=== PATIENT | female | born 1975 | race Caucasian/White ===

== ENCOUNTER 2022-04-29 22:06 | Emergency (ER) | payer OTHER ==
[~2022-04-29] VITALS: Ht 167.6 cm; Wt 108.9 kg
[~2022-04-29 22:06] MED LIST: CEPH500 PO; MULVITMINE PO; OLAN7.5 PO; PHENA200 PO; RXHYDACE PO; RXSULTRIDS PO; SULTRIDS PO
[2022-04-30] MEDS ORDERED: Fleet Enema132 ML PR (00:13)
[2022-04-30 01:00] LABS: Albumin, Blood 4.3 g/dL (3.4-5.0); Albumin/Globulin Ratio 1.1 (0.8-1.8); Bilirubin, Total 0.4 mg/dL (0.1-1.0); Bun/Creatinine Ratio 12.2 (12.0-20.0); Calcium, Blood 12.6 mg/dL (8.5-10.1); Creatinine, Blood 0.66 mg/dL (0.40-1.00); Potassium, Blood 3.8 mmol/L (3.5-5.5); Total Protein, Blood 8.3 g/dL (6.4-8.2)
== END 2022-04-30 01:30 | disposition home or self-care (01) ==
LOC: ER 22:06
PROVIDERS: Student in an Organized Health Care Education/Training Program
DX: K59.00 Constipation, unspecified (principal); E83.52 Hypercalcemia
CPT/HCPCS: 36415; 80053; 99283; A9270

== ENCOUNTER 2023-12-13 05:31 | Observation (INO) | payer OTHER ==
[~2023-12-13] VITALS: Ht 167.6 cm; Wt 95.2 kg
[~2023-12-13 05:31] MED LIST changes: +Fleet Enema132 ML PR
[2023-12-13] MEDS ORDERED: ZOLP5 PO (05:56)
[2023-12-13] MEDS ORDERED: OLANZapine 10 MG Tab PO PRN (08:20)
[2023-12-13 10:23] LABS: Source, Urine Clean Catch
[2023-12-13 10:33] LABS: Appearance, Urine Hazy (Clear); Bilirubin, Urine Neg (Neg); Blood, Urine 4+ (Neg); Color, Urine Yellow (P-Yellow); Glucose Qualitative, Urine Neg (Neg); Ketones, Urine Neg (Neg); Leukocyte Esterase, Urine 3+ (Neg); Nitrite, Urine Neg (Neg); Protein, Urine 2+ (Neg); Specific Gravity, Urine 1.015 (1.003-1.022); Urobilinogen, Urine NORM (Normal); pH, Urine 6.5 (5.0-8.0)
[2023-12-13 10:50] LABS: Bacteria Mod /hpf; Mucus Light (0-Heavy); Squamous Epithelial Cells Mod /hpf (Few); Uric Acid Crystals Few /hpf; White Blood Cells, Urine 25-50 /hpf (0-5)
[2023-12-13 10:58] LABS: U Amphetamine Screen Not Detected; U Barbituate Screen Not Detected; U Benzodiazapine Screen Not Detected; U Buprenorphine Screen Not Detected; U Cannabinoids Screen Not Detected; U Cocaine Screen Not Detected; U Methadone Screen Not Detected; U Methamphetamine Screen Not Detected; U Opiates Screen Not Detected; U Oxycodone Screen Not Detected; U Phencyclidine Screen Not Detected
[2023-12-13 14:37] LABS: BASOPHILS ABSOLUTE AUTO 0.05 K/mm3 (0.00-0.23); BASOPHILS PERCENT AUTO 1 % (0-2); EOSINOPHILS ABSOLUTE AUTO 0.19 K/mm3 (0.00-0.68); EOSINOPHILS PERCENT AUTO 2 % (0-6); Hematocrit 38.7 % (33.0-51.0); Hemoglobin 13.1 g/dL (11.5-16.0); IMMATURE GRAN ABSOLUTE AUTO 0.02 K/mm3 (0.00-0.10); IMMATURE GRAN PERCENT AUTO 0 % (0-1); LYMPHOCYTES ABSOLUTE AUTO 2.51 K/mm3 (0.84-5.20); LYMPHOCYTES PERCENT AUTO 31 % (21-46); MONOCYTES ABSOLUTE AUTO 0.88 K/mm3 (0.16-1.47); MONOCYTES PERCENT AUTO 11 % (4-13); Mean Corpuscular HGB 26.5 pg (26.0-34.0); Mean Corpuscular HGB Conc 33.9 g/dL (31.5-36.5); Mean Corpuscular Volume 78 fL (80-100); Mean Platelet Volume 9.4 fL (9.1-12.4); NEUTROPHILS ABSOLUTE AUTO 4.53 K/mm3 (1.96-9.15); NEUTROPHILS PERCENT AUTO 55 % (41-73); Platelet Count 359 K/mm3 (150-400); RDW Coefficient Variation 14.6 % (11.7-14.2); RDW Standard Deviation 41.5 fL (35.1-46.3); Red Blood Cell Count 4.95 M/mm3 (3.80-5.20); White Blood Cell Count 8.18 K/mm3 (4.00-11.30)
[2023-12-13 15:24] LABS: Alanine Aminotransfer (ALT/SGP 54 U/L (12-78); Alk Phos 83 U/L (50-136); Anion Gap 8 mmol/L (3-11); Aspartate Aminotrans (AST/SGOT 34 U/L (12-37); Bilirubin, Total 0.3 mg/dL (0.1-1.0); Blood Urea Nitrogen 7 mg/dL (8-24); CO2, Blood 25 mmol/L (21-32); Calcium, Blood 13.6 mg/dL (8.5-10.1); Chloride, Blood 109 mmol/L (98-108); Creatinine, Blood 0.78 mg/dL (0.40-1.00); Ethanol (Alcohol), Blood, Med <3 mg/dL; Globulin, Blood 3.9 g/dL (2.2-4.0); Glomerular Filtration Rate 95 (60-); Glucose, Blood 139 mg/dL (70-99); Potassium, Blood 3.3 mmol/L (3.5-5.5); Salicylate 2.4 mg/dL (2.8-20.0); Sodium, Blood 139 mmol/L (136-145); Total Protein, Blood 7.9 g/dL (6.4-8.2)
[2023-12-13 15:25] LABS: Acetaminophen, Random <2.0 ug/mL (10.0-30.0)
[2023-12-13 20:11] VITALS: BP 158/107
[2023-12-13] MEDS ORDERED: Zolpidem Tartrate 5 MG Tab PO SCH (21:00)
== END 2023-12-13 20:59 | disposition home or self-care (01) ==
LOC: ER 05:31 → EOR 05:32
PROVIDERS: ADMIT Emergency Medicine
DX: F25.1 Schizoaffective disorder, depressive type (principal); R45.851 Suicidal ideations; Z79.899 Other long term (current) drug therapy
CPT/HCPCS: 80053; 80320; 81001; 81025; 85025; 87086; 99285; A9270; G0378; G0480

== ENCOUNTER 2024-01-06 18:42 | Inpatient (IN) | payer OTHER ==
[~2024-01-06] VITALS: Ht 167.6 cm; Wt 91.5 kg
[~2024-01-06 18:42] MED LIST changes: +ZOLP5 PO
[2024-01-06] MEDS ORDERED: Lactated Ringer's 1,000 ML IV ONE (19:15)
[2024-01-06 20:12] LABS: BASOPHILS ABSOLUTE AUTO 0.06 K/mm3 (0.00-0.23); BASOPHILS PERCENT AUTO 1 % (0-2); EOSINOPHILS ABSOLUTE AUTO 0.11 K/mm3 (0.00-0.68); EOSINOPHILS PERCENT AUTO 1 % (0-6); Hematocrit 39.9 % (33.0-51.0); Hemoglobin 13.4 g/dL (11.5-16.0); IMMATURE GRAN ABSOLUTE AUTO 0.04 K/mm3 (0.00-0.10); IMMATURE GRAN PERCENT AUTO 0 % (0-1); LYMPHOCYTES ABSOLUTE AUTO 2.79 K/mm3 (0.84-5.20); LYMPHOCYTES PERCENT AUTO 25 % (21-46); MONOCYTES ABSOLUTE AUTO 1.16 K/mm3 (0.16-1.47); MONOCYTES PERCENT AUTO 10 % (4-13); Mean Corpuscular HGB 26.5 pg (26.0-34.0); Mean Corpuscular HGB Conc 33.6 g/dL (31.5-36.5); Mean Corpuscular Volume 79 fL (80-100); Mean Platelet Volume 9.6 fL (9.1-12.4); NEUTROPHILS ABSOLUTE AUTO 7.25 K/mm3 (1.96-9.15); NEUTROPHILS PERCENT AUTO 63 % (41-73); Platelet Count 387 K/mm3 (150-400); RDW Coefficient Variation 14.6 % (11.7-14.2); RDW Standard Deviation 41.2 fL (35.1-46.3); Red Blood Cell Count 5.06 M/mm3 (3.80-5.20); White Blood Cell Count 11.41 K/mm3 (4.00-11.30)
[2024-01-06 20:39] LABS: Albumin, Blood 3.9 g/dL (3.4-5.0); Bilirubin, Total 0.9 mg/dL (0.1-1.0); Bun/Creatinine Ratio 6.7 (12.0-20.0); Calcium, Blood 12.9 mg/dL (8.5-10.1); Creatinine, Blood 0.75 mg/dL (0.40-1.00); Free Thyroxine 1.32 ng/dL (0.70-1.60); Globulin, Blood 4.1 g/dL (2.2-4.0); Magnesium, Blood 1.8 mg/dL (1.6-2.4); Phosphorus, Blood 1.8 mg/dL (2.5-4.9); Potassium, Blood 3.3 mmol/L (3.5-5.5); Thyroid Stimulating Hormone 1.61 uIU/mL (0.360-4.800)
[2024-01-06] MEDS ORDERED: Cephalexin Monohydrate 500 MG Cap PO ONE (20:50)
[2024-01-06] MEDS ORDERED: FLU VACC TS2024-25(6MOS UP)/PF 45 MCG/0.5 ML SYRINGE IM SCH (21:00)
[2024-01-06] MEDS ORDERED: NS 1,000 ML IV SCH ×2 (21:00→22:50)
[2024-01-06] MEDS ORDERED: Ondansetron HCl 2 MG / ML 2ML Vial IV PRN (21:00)
[2024-01-06] MEDS ORDERED: Enoxaparin 40 MG/0.4 ML SYR SC SCH (21:00)
[2024-01-06] MEDS ORDERED: Potassium Phosphate Dibasic 30 MM in Dextrose 5% 500 ML IV STA (21:04)
[2024-01-06 21:34] LABS: Source, Urine Clean Catch
[2024-01-06 21:36] LABS: Bilirubin, Urine Neg (Neg); Blood, Urine 2+ (Neg); Glucose Qualitative, Urine Neg (Neg); Ketones, Urine 2+ (Neg); Leukocyte Esterase, Urine 3+ (Neg); Nitrite, Urine Neg (Neg); Protein, Urine 1+ (Neg); Urobilinogen, Urine 1+ (Normal)
[2024-01-06] MEDS ORDERED: Calcitonin Salmon 200 IU/ML 2ML Vial SC SCH (21:39)
[2024-01-06 21:42] LABS: Appearance, Urine Cloudy (Clear); Color, Urine Pale Yellow (P-Yellow)
[2024-01-06 21:44] LABS: White Blood Cells, Urine TNTC /hpf (0-5)
[2024-01-06 21:45] LABS: Amorphous Heavy (0-Heavy); Bacteria Many /hpf; Mucus Light (0-Heavy); Squamous Epithelial Cells Few /hpf (Few); Transitional Epithelial Cells Rare /hpf (0-Rare)
[2024-01-06] MEDS ORDERED: CefTRIAXone Sodium 1,000 MG in NS 100 ML IV SCH (23:06)
[2024-01-06 23:17] VITALS: BP 154/103
[2024-01-06] MEDS ORDERED: THERA-D2000 UNIT PO (23:35)
--- NOTE | 2024-01-06 23:46 | NUR ---
ADMISSION NOTE. PT AOX4, MOSTLY COOPERATIVE, ABLE TO MAKE NEEDS KNOWN. PT DENIES PAIN OUTSIDE OF HEADACHE FOR WHICH SHE REFUSES ANY PHARMACOLOGICAL MANAGEMENT. POTASSIUM PHOSPHATE RUNNING SINCE ARRIVAL, NS INFUSING. VITALS STABLE. PT REFUSES IN DEPTH SKIN ASSESSMENT. SOMEWHAT COOPERATIVE WITH ADMISSION PROCESS, UNCOMFORTABLE WITH SOME QUESTIONS ASKED AND SEEMS TO AVOID ANSWERING OTHERS. ON SUICIDE RISK ASSESSMENT, PT REPORTS THAT SHE HAS HAD THOUGHTS OF HARMING HERSELF BUT IS "NOT SURE HOW SHE WILL FELL WHEN SHE IS DISCHARGED". NOT GIVING CLEAR ANSWER TO QUESTIONS ABOUT CONTINUED THOUGHTS OF SELF HARM, POSSIBLE PLAN, ETC. SAYS THAT SHE LIVES WITH HER WHO "DOESN'T WANT TO TALK" WITH HER RIGHT NOW D/T EVERYTHING GOING ON. DENIES FINANCIAL PROBLEMS BUT NOTES "THERE MAY BE SOME AFTER ALL THESE HOSPITAL VISITS". RUNNING SINUS WITH RATE IN THE 80s. VITALS STABLE. PT VERY ANXIOUS IN ROOM AND AT TIMES APPEARS FEARFUL OF ASPECTS OF CARE. WHEN ASKED ABOUT HOME MEDICATIONS, PT IS UNCLEAR ON HOW OFTEN SHE TAKES THIS MEDICATIONS OR THE LAST TIME THAT THESE MEDICATIONS WERE TAKEN. PT IS COMFORTABLE IN BED AT THIS TIME. BED LOCKED IN LOWEST POSITION. 1:[address] FOR SAFETY[address] CONTINUING TO MONITOR.
[2024-01-07 00:19] VITALS: BP 126/87
[2024-01-07 03:55] VITALS: BP 136/88
[2024-01-07 04:03] LABS: BASOPHILS ABSOLUTE AUTO 0.06 K/mm3 (0.00-0.23); BASOPHILS PERCENT AUTO 1 % (0-2); EOSINOPHILS ABSOLUTE AUTO 0.12 K/mm3 (0.00-0.68); EOSINOPHILS PERCENT AUTO 1 % (0-6); Hematocrit 34.8 % (33.0-51.0); Hemoglobin 11.9 g/dL (11.5-16.0); IMMATURE GRAN ABSOLUTE AUTO 0.04 K/mm3 (0.00-0.10); IMMATURE GRAN PERCENT AUTO 0 % (0-1); LYMPHOCYTES ABSOLUTE AUTO 1.82 K/mm3 (0.84-5.20); LYMPHOCYTES PERCENT AUTO 16 % (21-46); MONOCYTES ABSOLUTE AUTO 1.22 K/mm3 (0.16-1.47); MONOCYTES PERCENT AUTO 11 % (4-13); Mean Corpuscular HGB 26.7 pg (26.0-34.0); Mean Corpuscular HGB Conc 34.2 g/dL (31.5-36.5); Mean Corpuscular Volume 78 fL (80-100); Mean Platelet Volume 9.7 fL (9.1-12.4); NEUTROPHILS ABSOLUTE AUTO 7.82 K/mm3 (1.96-9.15); NEUTROPHILS PERCENT AUTO 71 % (41-73); Platelet Count 338 K/mm3 (150-400); RDW Coefficient Variation 14.6 % (11.7-14.2); RDW Standard Deviation 41.2 fL (35.1-46.3); Red Blood Cell Count 4.45 M/mm3 (3.80-5.20); White Blood Cell Count 11.08 K/mm3 (4.00-11.30)
[2024-01-07 04:35] LABS: Albumin, Blood 3.5 g/dL (3.4-5.0); Bilirubin, Total 0.6 mg/dL (0.1-1.0); Bun/Creatinine Ratio 6.4 (12.0-20.0); Creatinine, Blood 0.62 mg/dL (0.40-1.00); Globulin, Blood 3.5 g/dL (2.2-4.0); Phosphorus, Blood 2.5 mg/dL (2.5-4.9); Potassium, Blood 3.1 mmol/L (3.5-5.5)
[2024-01-07 04:36] LABS: Calcium, Blood 10.4 mg/dL (8.5-10.1)
--- NOTE | 2024-01-07 05:13 | NUR ---
SHIFT SUMMARY. SHIFT HAS BEEN UNREMARKABLE. PT REMAINS ORIENTED, PLEASANT, COOPERATIVE, ABLE TO MAKE NEEDS KNOWN. HAS NOT BEEN ABLE TO SLEEP MUCH THROUGHOUT SHIFT BUT DENIED ANYTHING THAT MIGHT HELP AND REFUSED PHARMACOLOGICAL ASSISTANCE TO SLEEP. HAS DENIED PAIN THROUGHOUT SHIFT. 1:[address] FOR SAFETY. PT IS SBA TO BATHROOM. FLUIDS CONTINUE TO INFUSE. BED LOCKED IN LOWEST POSITION. 1:[address] CONTINUING TO MONITOR.
[2024-01-07 08:36] VITALS: BP 119/85
[2024-01-07] MEDS ORDERED: Potassium Phosphate Dibasic 30 MM in Dextrose 5% 500 ML IV STA (08:36)
[2024-01-07 12:12] VITALS: BP 130/90
[2024-01-07] MEDS ORDERED: OLANZapine 5 MG Tab PO ONE (13:20)
[2024-01-07] MEDS ORDERED: Zolpidem Tartrate 5 MG Tab PO PRN (15:35)
[2024-01-07] MEDS ORDERED: CINA30 PO (17:00)
[2024-01-07 17:04] LABS: SARS-Cov-2 (COVID-19) PCR, MMC NEGATIVE (NEGATIVE)
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
[2024-01-07] MEDS ORDERED: Potassium Chloride 10 Meq Tablet SA PO ONE (20:15)
[2024-01-07] MEDS ORDERED: OLANZapine 5 MG Tab PO SCH (21:00)
--- NOTE | 2024-01-07 21:50 | NUR ---
SHIFT SUMMARY PT APPROPRIATE IN ROOM, PT APPEARED ANXIOUS WITH PLANS GOING TO [facility]. PT WAS DC AT 2145 TO [facility] ACCOMPANIED BY SECURITY AND [facility].
[2024-01-08] MEDS ORDERED: Cinacalcet HCL 30 MG Tab PO SCH (09:00)
== END 2024-01-07 21:40 | DRG 641 ==
LOC: ER 18:42 → PCU 18:43 → ERHOLD 18:43 → PCU 22:32
PROVIDERS: Family Medicine; Internal Medicine; Student in an Organized Health Care Education/Training Program; ADMIT Internal Medicine
DX: E83.52 Hypercalcemia (principal); R45.851 Suicidal ideations; F32.A Depression, unspecified; F25.9 Schizoaffective disorder, unspecified; Z79.899 Other long term (current) drug therapy; E87.6 Hypokalemia; F43.12 Post-traumatic stress disorder, chronic; G47.00 Insomnia, unspecified; G47.33 Obstructive sleep apnea (adult) (pediatric); D50.9 Iron deficiency anemia, unspecified; E87.8 Other disorders of electrolyte and fluid balance, not elsewhere classified; E83.39 Other disorders of phosphorus metabolism
CPT/HCPCS: 36415; 76536; 80053; 81001; 82306; 82330; 83690; 83735; 83970; 84100; 84439; 84443; 85025; 87086; 93005; 93010; 96361; 96365; 96372; 96376; 99284-25; A9270; G0378; J0630; J0696; J1650; J7030; J7060; J7120; U0002

== ENCOUNTER 2024-01-07 18:21 | Inpatient (IN) | payer OTHER ==
[~2024-01-07 18:21] MED LIST changes: +CINA30 PO; +OLAN5 PO; -OLAN7.5 PO; +THERA-D2000 UNIT PO
[2024-01-07] MEDS ORDERED: FLU VACC TS2024-25(6MOS UP)/PF 45 MCG/0.5 ML SYRINGE IM SCH (19:40)
[2024-01-07] MEDS ORDERED: Aluminum Hydroxide 320MG/5ML 473 ML PO PRN (19:40)
[2024-01-07] MEDS ORDERED: Haloperidol 5 MG Tab PO PRN ×2 (19:40→19:45)
[2024-01-07] MEDS ORDERED: Acetaminophen 325 MG TABLET PO PRN (19:40)
[2024-01-07] MEDS ORDERED: TraZODone HCl 50 MG Tab PO PRN (19:45)
[2024-01-07] MEDS ORDERED: Ibuprofen 600 MG Tab PO PRN (19:45)
[2024-01-07] MEDS ORDERED: LORazepam 2 MG Tab PO PRN ×2 (19:45)
[2024-01-08 04:24] LABS: U Amphetamine Screen Not Detected; U Barbituate Screen Not Detected; U Benzodiazapine Screen Not Detected; U Buprenorphine Screen Not Detected; U Cannabinoids Screen Not Detected; U Cocaine Screen Not Detected; U Methadone Screen Not Detected; U Methamphetamine Screen Not Detected; U Opiates Screen Not Detected; U Oxycodone Screen Not Detected; U Phencyclidine Screen Not Detected
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
[2024-01-08 09:49] VITALS: BP 135/92
--- NOTE | 2024-01-08 16:18 | NUR ---
SHIFT SUMMARY PT AxOx4. PLEASANT AND COOPERATIVE WITH CARE. PT DENIES SI/HI AND AVH. PT REPORTS FEELING "GOOD BUT A LITTLE ANXIOUS" THIS AM. SHE HAS BEEN FOLLOWING HER CARE PLAN THIS SHIFT INCLUDING MED COMPLIANCE, PARTICIPATING IN GROUP ACTIVITIES AND MINGLING ON UNIT WITH PEERS/STAFF. PT'S CAME IN TO CHECK ON HER. WITH PT'S CONSENT, THIS RN UPDATED PT'S , MATY, ON HER STATUS AND PLAN OF CARE. PT IS CURRENTLY SITTING IN GROUP ROOM WATCHING TV WITH PEERS. PT DENIES ANY NEEDS AT THIS TIME.
[2024-01-08] MEDS ORDERED: OLANZapine ODT 5 MG Tab MM SCH (21:00)
[2024-01-08] MEDS ORDERED: Zolpidem Tartrate 5 MG Tab PO SCH (21:00)
[2024-01-08] MEDS ORDERED: OLANZapine 5 MG Tab PO SCH (21:00)
[2024-01-09 01:22] VITALS: BP 153/83
--- NOTE | 2024-01-09 05:42 | NUR ---
SHIFT SUMMARY Pt's behavior was described at start of shift as "rude" and "hostile" by several peers. Around shift change, staff on previous shift stated that pt had a moment of aggressive behavior triggered by the anxious energy of others. Pt threw unfinished puzzle on the floor in tv room and used a blunt, condescending tone when talking to other pts. Pt appeared to feel comfortable after change of shift upon recognizing familiar staff members from her admission the previous night. Compliant with noc meds. Went to bed early and was observed to be sleeping overnight. No incidents of inappropriate behavior this shift. Monitoring interactions with peers.
[2024-01-09] MEDS ORDERED: Cinacalcet HCL 30 MG Tab PO SCH (09:00)
[2024-01-09] MEDS ORDERED: Cholecalciferol 1000 Unit Tablet (=25MCG) PO SCH (09:00)
--- NOTE | 2024-01-09 17:36 | NUR ---
SHIFT SUMMARY PT AxOx4. PLEASANT AND COOPERATIVE WITH CARE. PT DENIED SI/HI AND AVD THIS SHIFT. SHE REPORTED A "GOOD" MOOD. SHE HAS BEEN FOLLOWING CARE PLAN INCLUDING TAKING MEDICATIONS PRESCRIBED, ATTENDING [place]IEU GROUPS AND MINGLING APPROPRIATELY ON THE UNIT WITH PEERS/STAFF. PT SPOKE WITH HER , MATY TODAY. THIS RN ALSO SPOKE WITH PT'S AND UPDATED HIM ON PLAN OF CARE AND PT STATUS. PT STATES SHE HAS VERY GOOD SUPPORT AT HOME AND IS "TOMASA TO HAVE HIM ()." PT IS CURRENTLY SITTING IN THE DINING ROOM EATING DINNER. DENIES ANY NEEDS AT THIS TIME.
[2024-01-09 21:18] VITALS: BP 152/102
--- NOTE | 2024-01-10 04:35 | NUR ---
PATIENT WAS IN BED AWAKE AT THE BEGINNING OF THE SHIFT. SHE DECLINED OFFER TO HAVE A SNACK. SHE WAS COMPLIANT WITH EVENING MEDICATIONS. SHE WAS QUIET, PLEASANT AND COOPERATIVE WITH CARES. SHE STATED THAT SHE WAS SLEEPY, AND WENT BACK TO BED AFTER EVENING MEDICATION PASS. SHE GOT UP ONE TIME DURING THE NIGHT AND CAME DOWN TO THE NURSING STATION TO FIND OUT THE TIME. SHE THEN WENT BACK TO HER ROOM AND WAS NOTED TO BE RESTING QUIETLY WITH EYES CLOSED AND RESPIRATIONS CONFIRMED. SHE HAD NO S/SX SUICIDAL IDEATION OR SELF HARM THIS SHIFT. CONTINUING TO MONITOR FOR SAFETY WITH Q15 MINUTE CHECKS.
[2024-01-10] MEDS ORDERED: Metoprolol Succinate 25 MG TABCR PO SCH (16:00)
[2024-01-10] MEDS ORDERED: MetFORMIN HCl 500 mg PO SCH (17:00)
--- NOTE | 2024-01-10 17:58 | NUR ---
SHIFT SUMMARY PT AxOx3, PLEASANT AND COOPERATIVE WITH CARE BUT ACTS CONFUSED AND PARANOID AT TIMES. PT DENIES SI/HI AND AVTH THIS AM AND REPORTS FEELING "GOOD" TODAY. SHE HAD A VISIT FROM HER , MATY AND REPORTED FEELING "TOMASA AND SUPPORTED BY HIM." SHE ALSO HAD A HOSPITALIST CONSULT FOR ELEVATED BP. THE PATIENT WAS PRESCRIBED NEW MEDICATION TODAY, BUT REFUSED TAKING THEM DUE TO "FEELING STRESSED ABOUT TAKING SO MUCH." PATIENT EDUCATION ON NEW MEDS AND THERAPEUTIC COMMUNICATION PROVIDED. PT CONTINUED TO DECLINE NEW MEDS, BUT STATED SHE WOULD STILL TAKE HER REGULAR BEDTIME MEDS. PT HAS BEEN FOLLOWING TREATMENT PLAN OTHERWISE, INCLUDING ATTENDING GROUPS AND MINGLING ON UNIT WITH PEERS STAFF. SHE ALSO MET WITH BEATER WORKER HELPER THIS SHIFT, AND HAS A TENTATIVE DC DATE OF 01/16/24. AWARE AND AGREEABLE TO CURRENT PLAN. PT IS CURRENTLY TALKING ON THE PHONE WITH HER SON. APPEARS TO BE IN GOOD SPIRITS, SMILING WHILE CHATTING.
--- NOTE | 2024-01-10 20:35 | NUR ---
PATIENT WAS GIVEN 2.5MG OF A 5MG AMBIEN, ORDERED. WASTED 2.5MG WITH SECOND NURSE, CHARGE NURSE WALKER BORJA
[2024-01-10 22:12] VITALS: BP 142/99
--- NOTE | 2024-01-11 04:22 | NUR ---
PATIENT WAS UP WITH THE GROUP AT THE BEGINNING OF THE SHIFT, IN THE GROUP ROOM. SHE STATED THAT SHE FELT "HOPEFUL". SHE WAS ABLE TO MAKE NEEDS KNOWN, BUT PRESENTED CONFUSED MUCH OF THE TIME. SHE WANTED A JOURNAL, AND WAS GIVEN ONE WITH A PATIENT PEN. SHE WAS COMPLIANT WITH EVENING MEDICATIONS. SHE DID NOT WANT TO TAKE THE METOPROLOL OR METFORMIN THAT WERE DUE EARLIER, BUT DID ACCEPT VERBAL AND WRITTEN MEDICATION EDUCATION REGARDING THE TWO MEDICINES. SHE SPENT MOST OF THE SHIFT IN BED RESTING WITH EYES CLOSED AND RESPIRATIONS CONFIRMED. SHE HAD NO S/SX SUICIDAL IDEATION OR SELF HARM. CONTINUING TO MONITOR FOR SAFETY WITH Q15 CHECKS.
[2024-01-11] MEDS ORDERED: Diltiazem HCl 180 MG Cap.CD PO SCH (09:00)
[2024-01-11 14:00] LABS: Magnesium, Blood 1.7 mg/dL (1.6-2.4)
[2024-01-11 14:23] LABS: Bilirubin, Total 0.5 mg/dL (0.1-1.0); Bun/Creatinine Ratio 14.3 (12.0-20.0); Calcium, Blood 13.5 mg/dL (8.5-10.1); Creatinine, Blood 0.77 mg/dL (0.40-1.00); Globulin, Blood 4.2 g/dL (2.2-4.0); Phosphorus, Blood 1.2 mg/dL (2.5-4.9); Potassium, Blood 3.1 mmol/L (3.5-5.5); Total Protein, Blood 8.2 g/dL (6.4-8.2)
--- NOTE | 2024-01-11 14:31 | NUR ---
CRITICAL CALCIUM LEVELS REPORTED TO BOTH PSYCHIATRIST AND DR. MORA THE HOSPITALIST. DR. MORA IS AWAITING TO SPEAK TO THE CLINICAL LIAISON, NO NEW ORDERS AT THIS TIME.
--- NOTE | 2024-01-11 16:50 | NUR ---
PT REFUSED MEDS THIS MORNING, SHE DID SUBMIT TO A BLOOD DRAW AFTER MUCH COAXING. SHE DENIED SI, HI, AVH, PAIN AND ANXIETY. SHE HAS REMAINED IN HER ROOM MOST OF THE DAY. PT SEEMS TO BE VERY RESISTIVE TO MEDICATIONS, MAKING DECISIONS AND TO BEING OUT IN THE MILIEU OR PARTICIPATING IN GROUPS. SHE HAS BEEN ENCOURAGED TO DRINK 2 LITERS OF FLUIDS PER PROVIDER RECOMMENDATION. GATOR AID WAS GIVEN TO HER.
[2024-01-11] MEDS ORDERED: Calcitonin Salmon 200 IU/ML 2ML Vial SC SCH (18:00)
[2024-01-11] MEDS ORDERED: Potassium Phosphate,Monobasic 500 MG Tablet PO SCH (18:00)
--- NOTE | 2024-01-11 19:43 | NUR ---
PT RECEIVED MIACALCIN 1ML, CLARIFICATION WITH PHARMACY BUT PT WAS SENT TO ER BY AMBULANCE FOR CONFUSION, RIGIDITY.
[2024-01-11] MEDS ORDERED: Cinacalcet HCL 30 MG Tab PO SCH (21:00)
--- NOTE | 2024-01-11 21:12 | NUR ---
TRANSFER TO ER VIA 911 EMS REQUESTED TO COME TO PT ROOM FOR OBSERVATION AND INFORMED PT BECAME DIAPHORETIC AND GRABBED MHA FOR SECURITY. UPON ENTERING ROOM PT WAS UNABLE TO COMMUNICATE NEEDS OR FEELINGS. CONTINUED TO GET PT TO VERBALIZE BUT ONLY THING PT COULD STATE IS "I'M A ZOMBIE" NURSING DECISION TO TRANSFER PT TO ER, 911 CALLED FOR TRANSORT FOR ASSESSMENT R/T RECENET CRITICAL CALCIUM LAB VALUES AND INABILITY TO COMMUNICATE, INCREASED CONFUSION, RIGITITY, AND SOME DIAPHORESIS.
--- NOTE | 2024-01-17 10:38 | NUR ---
PT BELONGINGS GIVEN TO PT SPOUSE BY WILMER PÉREZ, TODAY AT 1005, NO DISCREPANCIES REPORTED.
== END 2024-01-11 19:25 | disposition short-term general hospital (02) | DRG 885 ==
LOC: BHU 18:21
PROVIDERS: Internal Medicine; ADMIT Psychiatry & Neurology Psychiatry
DX: F20.0 Paranoid schizophrenia (principal); R45.851 Suicidal ideations; I10 Essential (primary) hypertension; E87.6 Hypokalemia; E21.2 Other hyperparathyroidism; F43.10 Post-traumatic stress disorder, unspecified; Z98.890 Other specified postprocedural states; Z98.51 Tubal ligation status; Z79.899 Other long term (current) drug therapy
CPT/HCPCS: 36415; 80053; 82330; 83735; 84100; A9270; J0630

== ENCOUNTER 2024-01-11 19:34 | Inpatient (IN) | payer OTHER ==
[~2024-01-11] VITALS: Ht 167.6 cm; Wt 95.2 kg
[2024-01-11] MEDS ORDERED: Haloperidol Lactate Inj. 5 MG/ML Injection IM ONE (19:50)
[2024-01-11] MEDS ORDERED: DiphenhydrAMINE HCl 50 MG/ML 1ML Vial IM ONE (20:10)
[2024-01-11] MEDS ORDERED: LORazepam 2 MG/ML 1ML Injection IM ONE (20:10)
[2024-01-11 20:25] LABS: BASOPHILS ABSOLUTE AUTO 0.07 K/mm3 (0.00-0.23); BASOPHILS PERCENT AUTO 1 % (0-2); EOSINOPHILS ABSOLUTE AUTO 0.11 K/mm3 (0.00-0.68); EOSINOPHILS PERCENT AUTO 1 % (0-6); Hematocrit 39.6 % (33.0-51.0); Hemoglobin 13.3 g/dL (11.5-16.0); IMMATURE GRAN ABSOLUTE AUTO 0.06 K/mm3 (0.00-0.10); IMMATURE GRAN PERCENT AUTO 1 % (0-1); LYMPHOCYTES PERCENT AUTO 20 % (21-46); MONOCYTES ABSOLUTE AUTO 1.25 K/mm3 (0.16-1.47); MONOCYTES PERCENT AUTO 10 % (4-13); Mean Corpuscular HGB 26.4 pg (26.0-34.0); Mean Corpuscular HGB Conc 33.6 g/dL (31.5-36.5); Mean Corpuscular Volume 79 fL (80-100); Mean Platelet Volume 9.7 fL (9.1-12.4); NEUTROPHILS PERCENT AUTO 68 % (41-73); Platelet Count 423 K/mm3 (150-400); RDW Coefficient Variation 14.1 % (11.7-14.2); RDW Standard Deviation 39.4 fL (35.1-46.3); Red Blood Cell Count 5.04 M/mm3 (3.80-5.20); White Blood Cell Count 12.29 K/mm3 (4.00-11.30)
[2024-01-11 20:48] LABS: Albumin, Blood 4.1 g/dL (3.4-5.0); Bilirubin, Total 0.7 mg/dL (0.1-1.0); Bun/Creatinine Ratio 14.5 (12.0-20.0); Calcium, Blood 12.8 mg/dL (8.5-10.1); Creatinine, Blood 0.76 mg/dL (0.40-1.00); Potassium, Blood 3.3 mmol/L (3.5-5.5); Total Protein, Blood 8.1 g/dL (6.4-8.2)
[2024-01-12] MEDS ORDERED: FLU VACC TS2024-25(6MOS UP)/PF 45 MCG/0.5 ML SYRINGE IM SCH (15:15)
[2024-01-12] MEDS ORDERED: NS 1,000 ML IV SCH (15:20)
[2024-01-12] MEDS ORDERED: Sennosides 8.6 MG Tab PO SCH (21:00)
[2024-01-12] MEDS ORDERED: Zolpidem Tartrate 5 MG Tab PO SCH (21:00)
[2024-01-12] MEDS ORDERED: OLANZapine ODT 5 MG Tab PO SCH (21:00)
--- NOTE | 2024-01-12 21:45 | NUR ---
REPORT RECEIVED FROM CYNDEE (BUTADIENE CONVERTER HELPER) AND AWAITING PT T/F TO ROOM 346.
[2024-01-12 23:42] VITALS: BP 133/89
[2024-01-13 01:02] LABS: Magnesium, Blood 1.4 mg/dL (1.6-2.4)
[2024-01-13 01:04] LABS: Albumin, Blood 3.7 g/dL (3.4-5.0); Bilirubin, Total 0.5 mg/dL (0.1-1.0); Bun/Creatinine Ratio 12.9 (12.0-20.0); Calcium, Blood 12.2 mg/dL (8.5-10.1); Creatinine, Blood 0.62 mg/dL (0.40-1.00); Globulin, Blood 3.8 g/dL (2.2-4.0); Phosphorus, Blood 0.9 mg/dL (2.5-4.9); Potassium, Blood 2.7 mmol/L (3.5-5.5); Total Protein, Blood 7.5 g/dL (6.4-8.2)
[2024-01-13] MEDS ORDERED: Magnesium Sulf 2 GM/Water 50ML 50 ML IV ONE (01:15)
[2024-01-13] MEDS ORDERED: Potassium Phosphate Dibasic 30 MM in Dextrose 5% 500 ML IV ONE (01:15)
[2024-01-13 05:39] VITALS: BP 128/82
[2024-01-13 05:49] LABS: BASOPHILS ABSOLUTE AUTO 0.06 K/mm3 (0.00-0.23); BASOPHILS PERCENT AUTO 1 % (0-2); EOSINOPHILS ABSOLUTE AUTO 0.23 K/mm3 (0.00-0.68); EOSINOPHILS PERCENT AUTO 2 % (0-6); Hemoglobin 12.7 g/dL (11.5-16.0); IMMATURE GRAN ABSOLUTE AUTO 0.05 K/mm3 (0.00-0.10); IMMATURE GRAN PERCENT AUTO 1 % (0-1); LYMPHOCYTES ABSOLUTE AUTO 2.44 K/mm3 (0.84-5.20); LYMPHOCYTES PERCENT AUTO 25 % (21-46); MONOCYTES PERCENT AUTO 12 % (4-13); Mean Corpuscular HGB 26.6 pg (26.0-34.0); Mean Corpuscular HGB Conc 34.3 g/dL (31.5-36.5); Mean Corpuscular Volume 78 fL (80-100); Mean Platelet Volume 9.7 fL (9.1-12.4); NEUTROPHILS ABSOLUTE AUTO 5.71 K/mm3 (1.96-9.15); NEUTROPHILS PERCENT AUTO 59 % (41-73); Platelet Count 380 K/mm3 (150-400); RDW Coefficient Variation 14.3 % (11.7-14.2); RDW Standard Deviation 39.4 fL (35.1-46.3); Red Blood Cell Count 4.77 M/mm3 (3.80-5.20); White Blood Cell Count 9.69 K/mm3 (4.00-11.30)
[2024-01-13 06:13] LABS: Source, Urine Voided
[2024-01-13 06:22] LABS: Albumin, Blood 3.6 g/dL (3.4-5.0); Bilirubin, Total 0.5 mg/dL (0.1-1.0); Bun/Creatinine Ratio 11.4 (12.0-20.0); Calcium, Blood 12.1 mg/dL (8.5-10.1); Creatinine, Blood 0.7 mg/dL (0.40-1.00); Globulin, Blood 3.6 g/dL (2.2-4.0); Potassium, Blood 2.8 mmol/L (3.5-5.5); Total Protein, Blood 7.2 g/dL (6.4-8.2)
[2024-01-13 06:23] LABS: Appearance, Urine Clear (Clear); Bilirubin, Urine Neg (Neg); Blood, Urine 4+ (Neg); Color, Urine Yellow (P-Yellow); Glucose Qualitative, Urine Neg (Neg); Ketones, Urine 3+ (Neg); Leukocyte Esterase, Urine 2+ (Neg); Nitrite, Urine Neg (Neg); Protein, Urine 2+ (Neg); Urobilinogen, Urine NORM (Normal); pH, Urine 6.5 (5.0-8.0)
[2024-01-13 06:39] LABS: Bacteria Mod /hpf; Calcium Oxalate Crystals Few /hpf; Red Blood Cells, Urine 25-50 /hpf (0-2); Squamous Epithelial Cells Few /hpf (Few)
--- NOTE | 2024-01-13 06:49 | NUR ---
T/F AND SUMMARY: PT T/F TO ROOM 346 VIA GURNEY AT 2245. SHE APPEARS FLAT AND WITHDRAWN BUT IS PLEASANT AND COOPERATIVE W/CARE. PT IS A/O TO SELF, PERSON AND "HOSPITAL" CURRENTLY BUT IS FORGETFULL TO DATE, SITUATION AND EVENTS PRECEEDIND ADMISSION. SPEECH IS SOFT AND RESPONSES TO Q'S ARE OCCASSIONALLY DELAYED AND THOUGHTS APPEAR DISORGANIZED. SHE IS NOW INTERACTING W/STAFF MORE APPROPRIATELY BUT SEEMS TO HAVE SOME TROUBLE PUTTING THOUGHTS INTO WORDS. UPON INITIAL T/F SHE APPEARED VERY NERVOUS, FEARFUL, APREHENSIVE AND PARANOID. SHE WAS NONVERBAL, ONLY NODDING YES/NO AND WOULDN'T MOVE EXT'S TO FOLLOW INSRUCTIONS. SHE CALMED W/EXPLANATION AND THERAPEUTIC COMMUNICATION THOUGH AND BECAME ABLE TO SPECIFY NEEDS, MOVE ALL EXT'S AND AMBULATE W/SBA TO BSC. 24 HR URINE COMMENCED AND UA W/CULT IF IND RX'D D/T URINE APPEARING CLOUDY, PUNGEANT AND CONCENTRATED. SHE'S NSR-S.TACH ON TELE AT 90'S-100'S BPM. 2MD HOLD IN PLACE W/PAPERWORK IN PLACE ON CHART AND 1:1 SITTER PRESENT. SHE'S DENIED CURRENT SI/PLAN BUT ADMITTED TO THESE IN ER W/PSYCH CONSULTED. BHU PLACEMENT PROBABLE PENDING MEDICALLY STABLE. SHE HAD A NEW IV PLACED TO R.WRIST VIA U/S AND NS COMMENCED AT 125 ML/HR. CRITICAL PHOS-0.9, K-2.7 AND MAG-1.4 W/MAGNESIUM GM IV X1 AND KPHOS 30MMOL INFUSION RX'D AND BEING RECEIVED. PT REFUSED HS MEDS BUT IS DRINKING LIQ'S. NO ACUTE CHANGES, VSS AND AFEBRILE. WCTM AND REPORT TO DAY RN.
[2024-01-13] MEDS ORDERED: Potassium Phosphate Dibasic 30 MM in Dextrose 5% 500 ML IV STA ×2 (07:02→14:58)
[2024-01-13 07:18] VITALS: BP 129/90
--- NOTE | 2024-01-13 07:52 | NUR ---
ATTEMPTED TO CONTACT MD REGARDING PT 2ND BAG OF POTASSIUM ORDER, FIRST BAG HAS NOT FINISHED YET, NO ANSWER. WILL FOLLOW UP WITH MD DURING ROUNDS.
[2024-01-13] MEDS ORDERED: Cinacalcet HCL 30 MG Tab PO SCH (09:00)
[2024-01-13] MEDS ORDERED: Cholecalciferol 1000 Unit Tablet (=25MCG) PO SCH (09:00)
[2024-01-13] MEDS ORDERED: Enoxaparin 40 MG/0.4 ML SYR SC SCH (09:00)
--- NOTE | 2024-01-13 10:45 | NUR ---
SUPERVISOR WET END SITTER Report Q 4 hours: Am shift report from [facility] SUPERVISOR WET END SITTER transfer. Additional info gathered chatting to [facility] R.N. @7:00 am Asleep whispering, "Why can't I just ?, "I love the lord, I just can't keep doing this." and "Please take me." On repeat. @7:15 am SUPERVISOR WET END here w introduction and a.m. vitals. Lethargic, awake, asked.."where's Rosa?" ([facility] nurse) -Then not responsive to questions or prompts. @7:30am 2 R.N's here, a.m. greeting assesment, patient not responsive, pretending to be asleep. @7:45 am Rosa ([facility] nurse) here to check on patient and give thorough update and hx to sitter, "me", patient friendly but lethargic, unclear responses. @ 8:00 am (x3) M.D's here, pleasant confused, discuss status and cont'd tx @ 8:15 am BFAST tray brought, IMMEDIATE DECLINED. c/o dizziness stated "tired". @ 8:30 am asked for water politely, smiling. then asked for tray "untouched" to be removed. @ 9:00 am Requested agitatedly to use phone, assist needed. Got through to . Sobbing and appologizing on repeat. Sounds like unaware of her location. Requesting to see "Karla" Crying and frequent setting down phone to "breathe" "Im not sure if I'm strong enough to make it, I'm thankful for you if this doesn't work, I love you." Continued to mumble and then impulse yelled, "I CANT TALK ANYMORE!" then hung up mid sentence. @9:15 am sleeping @ 10:15 am sleeping @ 10:45 awake, pleasant mood, when asked how shes feeling, "Trepidation, anxious, shaky." smiled sweetly then closed eyes but awake. Alerted SUPERVISOR WET END to alert R.N. willing to tx and meds at this time. @ 11 am M.D. here from [facility], chatting, assuring her we are on her side and working on getting her right. Will be back tomorrow. DELI CUTTER SLICER here but patient want to use restroom. Commode brought to bedside, shaky unsteady but easily a standby. 700 ml urine added to 24 hour urine canister. ICE REPLACED ...waiting for orthodontic technician to return... Labs here to draw blood. Patient refused x3 because ekg needs to be first in her opinion. R.N. here to convince her. "waiting for ekg first, its because my heart cant take it." R.N. redirected then distracted into lab draw successful by 11:30 am. 11:50 am r.n. admin meds and I.V tx, choking heavily until hard dry heaving from doc sod. almost emesis. Difficult swallow panic. STONE CUTTER back but reported that room was misunderstood, EKG was error and not needed for this patient. Patient sitting up getting composure after panic from "choking" sob and anxious. Distraction and redirect works well with her. Soft voices best.
[2024-01-13] MEDS ORDERED: NS 1,000 ML IV SCH (14:10)
[2024-01-13 14:23] LABS: Bun/Creatinine Ratio 7.7 (12.0-20.0); Calcium, Blood 11.9 mg/dL (8.5-10.1); Creatinine, Blood 0.65 mg/dL (0.40-1.00); Magnesium, Blood 1.7 mg/dL (1.6-2.4); Phosphorus, Blood 2.4 mg/dL (2.5-4.9); Potassium, Blood 2.9 mmol/L (3.5-5.5)
--- NOTE | 2024-01-13 14:37 | NUR ---
Patient kirti from 12 noon. Took about 20 minutes to recover from choking o her oral meds. heavy dry heaving. agitated movements. took glasses from table, put them on then immediately back off, lay down sit up 90 degrees. Just antsy. Calm redirect conversation helps if you do it genuine. After 20 minutes "You have such a loving peaceful vibe about you, it's calming, thank you." Cont'd calm chatting. Then asked if shes allowed to walk around.Anxious. All the meds make me uncomfortable. i need to walk or my system" waved her hands around like indicating kaos. so...got uo and stand by, walked a pepper lap then back to room. Super dizzy w the amount of people in pepper, wanted to go back fast. @12:15 - Cranberry juice brought by LEAD SOFTWARE TESTER, Lunch offered but absolute declined. @12:30 - R.N here to check on her, "amxious but better" repeated, "uncomfortable" w the amount of meds given by us. Nurse assured her she is only getting minimal and nothing unneeded. Will let her know when lab results process. @12:40 Showed her t.v. to help her turn off mind. Watched football til 1pm T.V. off, said "too much stimulation" eyes closed and "thank you for being with me." @ 1:45 pm, R.N. awke her to medpass, heavy assist to swallow without incident. @ 1:50 Housekeeping loud outside door, upsetting her, when knock to ask if she wants cleaning she loud declined and said, "Too much noise". As soon as HC left, Patient coordinator knocked to ask questions about homelife and insurance. Patient friendly but. "sick of the interruptions" I went to shut the door so people would know she needs a break. @ 2:15 pm- LEAD SOFTWARE TESTER check, pleasant interaction but after left expressed irritation. Declined LEAD SOFTWARE TESTER's assist or help for now."The doors constantly opening but you guys keep saying to rest." @ 2:20 pm- Nutrition services here to ask about her weight and attempt to get fresh one. Sat down to discuss diet preferences and habits. declined his suggestions but friendly. This Clinical Academic Allergist-Sitter is being sent [facility]. Will be back shortly. declined
[2024-01-13] MEDS ORDERED: Potassium Chloride 20 MEQ TabCR PO ONE (15:00)
[2024-01-13 15:32] VITALS: BP 128/87
--- NOTE | 2024-01-13 17:46 | NUR ---
Back from my lunch break @ 3:30 pm, hallway and ajoining rooms kaos which agitated this patient. anxious. P.M. Vitals performed, offered restroom and up oob, declined for now. Resting after a nice chat, quiet, football on, nothing needed at this time. Watching the game. @ 4:oo pm -upto restroom, 400 ml. urine, into 24 hour collection container. Was able to get current accurate weight as well. Discussed yogurt or jello. Patient very concerned about intake of fattening food. Unwilling to eat ANYTHING AT ALL. Happy friendly chatting. @ 4:45 pm, R.N. here to change out I.V. fluids and flush. Fresh ice into 24 hour urine bucket. Patient comfy in bed with football on. Cont'd turn and thankful for my presence. In and Out of chatting together til 5:45 pm. Patient declined dinner from the VICE PRESIDENT REGULATORY and asked if I was staying for a while. I told her the shift switch time and she thanked me again and drifted off to sleep. Woke up 10 minutes later panicked and asked for me. I said I'm right here and she relaxed. Resting quietly again.
--- NOTE | 2024-01-13 17:55 | NUR ---
SHIFT SUMMARY PT AOX3, COOPERATIVE, ABLE TO MAKE NEEDS KNOWN. 1:[address]. PATIENT DID HAVE DIFFICULT TIME SWALLOWING POTASSIUM PILLS, QUALITY ASSURANCE/R&D LAB TECHNICIAN WAS ABLE TO CONVINCE PT TO TAKE PILLS WITH THIS RN PRESENT. PT DID AMBULATE IN HALLWAY ONCE TODAY. EXPRESSED IRRITATION WITH AMOUNT OF DISTURBANCES ENTERING AND EXITING ROOM. 24 HOUR URINE COLLECTION WILL BE COMPLETE AT 0545 ON 01/13. BED IN LOWEST POSITION, CALL LIGHT WITHIN REACH.
[2024-01-13 20:39] VITALS: BP 130/81
--- NOTE | 2024-01-14 04:35 | NUR ---
SHIFT SUMMARY NOC PT A/O X 3-4. PLEASANT AND COOPERATIVE WITH CARE. VSS. 1:[address] FOR SI RISK. PT TOOK SHOWER. PT HAS BEEN SLEEP ENTIRETY OF SHIFT. POTASSIUM AND PHOSPHATE LOW YESTERDAY, AWAITING AM LABS FOR IMPROVEMENT. ON TELE SINUS RHYTHM IN 80'S. PT CURRENTLY RESTING WITH BED IN LOWEST POSITION, AND CALL LIGHT WITHIN REACH.
[2024-01-14 05:37] VITALS: BP 127/88
[2024-01-14 06:14] LABS: Bun/Creatinine Ratio 6.7 (12.0-20.0); Calcium, Blood 11.4 mg/dL (8.5-10.1); Creatinine, Blood 0.75 mg/dL (0.40-1.00); Magnesium, Blood 1.6 mg/dL (1.6-2.4); Phosphorus, Blood 2.8 mg/dL (2.5-4.9); Potassium, Blood 3.3 mmol/L (3.5-5.5)
[2024-01-14 06:41] LABS: Calcium, Urine 16.7 mg/dL (< 17.5); Calcium, Urine Calculation 250.5 mg/24hrs (42.0-353.0)
[2024-01-14] MEDS ORDERED: Potassium Chloride 20 MEQ TabCR PO ONE (07:00)
[2024-01-14 07:29] VITALS: BP 122/84
[2024-01-14] MEDS ORDERED: Cholecalciferol 1000 Unit Tablet (=25MCG) PO SCH (09:00)
[2024-01-14] MEDS ORDERED: OLANZapine 5 MG Tab PO ONE (11:00)
--- NOTE | 2024-01-14 14:34 | NUR ---
PSYCHIATRIST RELEASED PT OF HOLD AND STATED HE WOULD TAKE ORIGINAL TO BE FILED.
[2024-01-14] MEDS ORDERED: LORazepam 2 MG/ML 1ML Injection IV ONE (14:45)
[2024-01-14 16:57] VITALS: BP 138/103
--- NOTE | 2024-01-14 18:05 | NUR ---
SHIFT SUMMARY PT AOX3, SEMI COOPERATIVE WITH CARE BUT NEEDS ALOT OF REINFORCEMENT, ABLE TO MAKE NEEDS KNOWN. HARDLY ANY PO INTAKE, MOSTLY JUST CRANBERRY JUICE. ELECTROLYTES TREND IMPROVING. HAD CT SCAN FOR PARATHYROID, LITTLE DIFFICULTY WITH ANXIETY, ATTEMPTED TO MEDICATE, PT DID NOT WANT MEDICATION AND PROCEDURE WAS SUCCESSFULL. DID AMBULATE IN HALLWAY TODAY FOR ABOUT 20 MINUTES. PSYCHIATRIST LIFT HOLD, PAPERWORK IN CHART. PT STRUGGLED TAKING PILLS TODAY, DID NOT TAKE VIT D, CHARTED REFUSAL. BED IN LOWEST POSITION, CALL LIGHT WITHIN REACH.
[2024-01-14 20:15] VITALS: BP 148/93
[2024-01-15 05:34] VITALS: BP 137/88
--- NOTE | 2024-01-15 05:59 | NUR ---
SHIFT SUMMARY NOC PT A/O X 3. FORGETFUL AND MILDLY CONFUSED AT TIMES, BUT PLEASANT AND COOPERATIVE WITH CARE, BUT ANXIOUS. VSS. SCHEDULED ANXIETY RX GIVEN AT BEDTIME. MD HOLD LIFTED DURING DAY SHIFT. PT STILL HAS SITTER IN PLACE FOR SI, BUT DENIES ANY SI AT THIS TIME. POTASSIUM 3.3 YESTERDAY AND REPLACEMENT GIVEN, AWAITING AM LABS FOR IMPROVEMENT. ON TELE SINUS RHYTHM IN 90'S. PT CURRENTLY RESTING WITH BED IN LOWEST POSITION, AND CALL LIGHT WITHIN REACH.
[2024-01-15 06:10] LABS: Bun/Creatinine Ratio 8.3 (12.0-20.0); Calcium, Blood 11.8 mg/dL (8.5-10.1); Creatinine, Blood 0.72 mg/dL (0.40-1.00); Potassium, Blood 2.9 mmol/L (3.5-5.5)
[2024-01-15] MEDS ORDERED: Potassium Chl 20MEQ/Water100ML 100 ML IV SCH (06:40)
--- NOTE | 2024-01-15 06:41 | NUR ---
AM POTASSIUM 2.9 HOSPITALIST NOTIFIED ORDER FOR KCL 40 MEQ IV X 1 PUT IN.
[2024-01-15] MEDS ORDERED: Potassium Chloride 20 MEQ TabCR PO ONE (07:00)
[2024-01-15 07:50] VITALS: BP 149/102
[2024-01-15] MEDS ORDERED: Clarify Drug Order XX ONE (08:05)
[2024-01-15 14:46] VITALS: BP 142/88
--- NOTE | 2024-01-15 17:40 | NUR ---
SHIFT SUMMARY PT AOX3, SEMI COOPERATIVE, ABLE TO MAKE NEEDS KNOWN. PT TOOK FIRST HALF OF POTASSIUM IV THIS MORING WITHOUT COMPLICATIONS, WAS VERY HESITANT TO TAKE SECOND HALF OF POTASSIUM AND TOOK PERSUADING. PT HAS BEEN TAKING VITAMIN D MEDICATION OVER THE COURSE OF ENTIRE SHIFT, TOLERATING WELL. CURRENTLY ORDRE IN PLACE FOR 24 HOUR URINE COLLECTION IN BATHROOM, WILL END AT 1340 ON 01/16/24. PT ON TELE, TACHING UP WITH ACTIVITY. BED IN LOWEST POSITION, CALL LIGHT WITHIN REACH.
[2024-01-15 20:16] VITALS: BP 150/106
[2024-01-15] MEDS ORDERED: Cinacalcet HCL 30 MG Tab PO SCH (21:00)
[2024-01-15 21:27] LABS: Bun/Creatinine Ratio 8.1 (12.0-20.0); Calcium, Blood 12.1 mg/dL (8.5-10.1); Creatinine, Blood 0.74 mg/dL (0.40-1.00); Potassium, Blood 3.4 mmol/L (3.5-5.5)
--- NOTE | 2024-01-16 04:57 | NUR ---
SHIFT SUMMARY NOC PT A/O X 3-4. PLEASANT AND COOPERATIVE WITH CARE, BUT ANXIOUS. PT TOOK HS RX W/O ISSUE. PT WALKED UP AND DOWN THE HALLWAY INDEPENDENTLY TO LOOK OUT WINDOW WITH SITTER NEXT TO THEM. PT ON TELE SINUS TACH IN LOW 100'S AND TACHS INTO 130'S-140'S WHEN AMBULATING. NS INFUSING @ 200 ML/HR. PT PO INTAKE EXCELLENT. PT RECEIVED POTASSIUM 3.4 AFTER REPLACEMENT. PT HAS 1:[address] FOR SAFETY DUE TO ERRATIC BEHAVIOUR AT TIMES (PRESSING BUTTONS ON IV PUMP DURING INFUSION). PT HAS [address]LECTION IN PL[address] THAT IS DUE TO STOP ON 01/16/24 @ 1340. PROGRESS NOTES FROM 01/14 SHOWED THAT ENT CONSULT WITH DR HERNÁNDEZ FOR MINIMALLY INVASIVE PARATHYROIDECTOMY TO BE PUT IN BY TODAY. PT CURRENTLY RESTING WITH BED IN LOWEST POSITION, AND CALL LIGHT WITHIN REACH.
[2024-01-16 05:22] VITALS: BP 123/77
[2024-01-16 07:26] VITALS: BP 119/82
[2024-01-16 09:07] LABS: Magnesium, Blood 1.5 mg/dL (1.6-2.4)
[2024-01-16 09:08] LABS: Bun/Creatinine Ratio 6.9 (12.0-20.0); Calcium, Blood 10.6 mg/dL (8.5-10.1); Creatinine, Blood 0.72 mg/dL (0.40-1.00); Phosphorus, Blood 1.4 mg/dL (2.5-4.9); Potassium, Blood 3.4 mmol/L (3.5-5.5)
[2024-01-16] MEDS ORDERED: Potassium Phosphate Dibasic 30 MM in Dextrose 5% 500 ML IV STA (11:46)
[2024-01-16] MEDS ORDERED: Magnesium Sulf 2 GM/Water 50ML 50 ML IV SCH (11:50)
[2024-01-16 15:36] VITALS: BP 141/89
--- NOTE | 2024-01-16 18:08 | NUR ---
SPOKE TO DR HERNÁNDEZ. HE AGREED TO SEE PT. UNSURE OF IF HERE OR HIS OFFICE FOR ANY PROCEDURE OR IF NOT. HUSB SOME UPSET, BUT WILL AWAIT CALL FROM TO FIND OUT PLAN. PT CONTINUES TO BE SLOWLY COOPERATIVE, SOME NERVOUS. PRESENTLY RUNNING LAST OF K+. CONTINUES 1 ASST BATHROOM. NO OTHER CONCERNS NOTED. BED IN LOW POSITION, CALL LITE IN REACH, CALLS APPROP
[2024-01-16 19:25] VITALS: BP 143/94
--- NOTE | 2024-01-17 05:10 | NUR ---
SHIFT SUMMARY: Pt is admitted for schizoaffective disorder and is a full code. Is alert and able to make needs known. Denies pain but did state she has some minor ABD discomfort at the start of shift. Declined anything for pain management. On follow up she stated it was still present but not as bad as when first reported. Telly reports sinus tach in the 100s. Did report one spike up to the 150s while up and moving. But did go back to 100s once resting again. ADLs have been SBA. 1 on 1 for fall safety.
[2024-01-17 05:12] VITALS: BP 130/86
[2024-01-17 07:16] VITALS: BP 137/93
--- NOTE | 2024-01-17 08:05 | NUR ---
NOTE: SPOKE WITH DR. HERNÁNDEZ, ENT CONSULT, AND HE CONFIRMED THE PT WILL BE SEEN OUTPATIENT AT THEIR CLINIC. DR. CHAVES, HER HOSPITALIST, WAS NOTIFIED AND SAID HE WOULD DISCUSS THE PLAN WITH THE PT DURING ROUNDS.
[2024-01-17 09:24] LABS: Calcium, Blood 11.3 mg/dL (8.5-10.1); Creatinine, Blood 0.71 mg/dL (0.40-1.00); Magnesium, Blood 1.7 mg/dL (1.6-2.4); Phosphorus, Blood 2.5 mg/dL (2.5-4.9); Potassium, Blood 3.4 mmol/L (3.5-5.5)
[2024-01-17] MEDS ORDERED: Potassium Chloride 20 MEQ TabCR PO ONE (11:00)
--- NOTE | 2024-01-17 12:02 | NUR ---
DISCHARGE NOTE PT DISCHARGED TO HOME, PICKED UP BY HER . DISCHARGE EDUCATION AND INFORMATION REVIEWED AND PROVIDED TO THE PT. IV REMOVED. TELE RETURNED. MEDICATIONS FAXED TO THE PHARMACY OF HER CHOICE. PERSONAL BELONGINGS RETURNED.
--- NOTE | 2024-01-17 13:05 | NUR ---
Upon receiving a referral for spiritual care, I visited the patient. She tells me about feeling overwhelmed but negative thoughts. She says that she thought she was managing ok and then she went to a really dark place. Mike, her spouse, is bedside and engages in the conversation as well. He attempts to steer the conversation away from her thooughts to the patient's thyroid issues. Patient then shares about her spiritual beliefs and is tearful at times. 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 Mike shares some of his views about the [employer] as a whole and then gathers with us to pray. Both the patient and Mike voice their appreciation for the prayer and encouragement. THe patient showed signs of greater peace.
--- NOTE | 2024-01-18 15:09 | NUR ---
DISCHARGE ZYPREXA DOSE THIS RN RECEIVED A CALL ABOUT PT'S ZYPREXA ORDER AND UNABLE TO CUT SOLUTAB IN HALF WITHOUT IT CRUMBLING. THIS RN TALKED WITH DR. MIKE JACOBSON ABOUT THIS AND DR. MIKE JACOBSON GAVE A VERABL ORDER TO CHANGE THE ZYPREXA TO 5MG TABLET WITH A DOSE OF 7.5 MG AT BEDTIME. THIS RN TALKED WITH HUAN, PHARMACIST AT [facility] AND GAVE HER THE NEW ORDER: ZYPREXA 5 MG TABLET-TAKE 7.5 MG PO AT BEDTIME, 30 TABS, AND 1 REFILL.
[2024-01-19 14:50] LABS: 25-HYDROXYVITAMIN D2 <1.0 ng/mL; 25-HYDROXYVITAMIN D2 D3 TOTAL 27.4 ng/mL (30.0-80.0); 25-HYDROXYVITAMIN D3 27.4 ng/mL
== END 2024-01-17 11:50 | disposition home or self-care (01) | DRG 641 ==
LOC: ER 19:34 → EOR 19:35 → ER 19:35 → MEDS 19:35
PROVIDERS: Family Medicine; Internal Medicine; ADMIT Student in an Organized Health Care Education/Training Program
DX: E83.52 Hypercalcemia (principal); R45.851 Suicidal ideations; F20.0 Paranoid schizophrenia; E21.0 Primary hyperparathyroidism; Z98.890 Other specified postprocedural states; Z79.899 Other long term (current) drug therapy; D35.1 Benign neoplasm of parathyroid gland; R00.0 Tachycardia, unspecified; E83.39 Other disorders of phosphorus metabolism; I10 Essential (primary) hypertension; E87.6 Hypokalemia
CPT/HCPCS: 36415; 78071; 80048; 80053; 81001; 82306; 82310; 82330; 82340; 82436; 82570; 82652; 82947; 83735; 83930; 83935; 83970; 84100; 84133; 84300; 84484; 85025; 87086; 93005; 93010; 96361; 96372; 96374; 96375; 96376; 99285-25; A9270; A9500; G0378; J1200; J1650; J2060; J3475; J3480; J7030; J7060

== ENCOUNTER 2024-02-10 06:04 | Day surgery (SDC) | payer MEDICARE, OTHER ==
[~2024-02-10] VITALS: Ht 167.6 cm; Wt 92.2 kg
[2024-02-10] MEDS ORDERED: Lactated Ringer's 1,000 ML IV ONE ×4 (06:24→10:40)
[2024-02-10] MEDS ORDERED: Lidocaine 2%-Epineph 1:200000 20 ML SDV ONE (06:40)
[2024-02-10] MEDS ORDERED: propofoL 20 ML IV ONE ×2 (07:05→07:41)
[2024-02-10] MEDS ORDERED: FentaNYL Citrate 50 MCG/ML 2 ML Injection ONE (07:05)
[2024-02-10] MEDS ORDERED: Sugammadex Sodium 200 MG/2ML SDV (100 MG/ML) ONE (07:05)
[2024-02-10] MEDS ORDERED: Midazolam HCl 1MG / ML 2ML Vial ONE (07:05)
[2024-02-10] MEDS ORDERED: Dexamethasone Sod Phos 10 MG/ML 1ML VIAL ONE (07:06)
[2024-02-10] MEDS ORDERED: SuccINYLCHOLINE Chloride 100 MG/5 ML 5MLSYR ONE ×2 (07:06)
[2024-02-10] MEDS ORDERED: Ondansetron HCl 2 MG / ML 2ML Vial ONE (07:06)
[2024-02-10] MEDS ORDERED: Lidocaine 2%-Epineph 1:200000 20 ML SDV INJ ONE (07:54)
[2024-02-10] MEDS ORDERED: HYDROmorphone HCl/Pf 1MG SYR ONE (08:30)
--- NOTE | 2024-02-10 10:14 | NUR ---
02/10/[address] UNABLE TO LOCATE PARATHYROID. DR HERNÁNDEZ CONSULTED W/ PATIENT'S , TOGETHER THEY BOTH DECIDED TO ABORT PROCEDURE.
[2024-02-10 10:52] VITALS: BP 147/98
[2024-02-10] MEDS ORDERED: OxyCODONE HCL 5 MG TAB ONE (10:53)
--- NOTE | 2024-02-10 11:30 | NUR ---
02/10/24 1130 Walter Renee, PT PAIN 5/10 AND RECEIVED OXYCODONE 5MG PER MD POST OP ORDERS. PT REASSESSED AND PAIN DECREASED TO A TOLERABLE LEVEL OF 2/10. PT SLOWLY SIPPING WATER. ABLE TO FOLLOW COMMANDS. AT BEDSIDE. DC INSTRUCTIONS REVIEWED BY RN WITH AND PATIENT.
== END 2024-02-10 11:35 | disposition home or self-care (01) ==
LOC: ORSCSDS 06:04
PROVIDERS: Otolaryngology
PROC: 0CJ Mouth and Throat, Inspection (ICD-10-PCS; principal; 2024-02-10 07:30)
DX: E21.0 Primary hyperparathyroidism (principal); I10 Essential (primary) hypertension; F43.10 Post-traumatic stress disorder, unspecified; E66.9 Obesity, unspecified; Z68.32 Body mass index [BMI] 32.0-32.9, adult; Z79.899 Other long term (current) drug therapy; F25.9 Schizoaffective disorder, unspecified
CPT/HCPCS: 83970; A9270; J0330; J1100; J1171; J2250; J2405; J2704; J3010; J7120